=== PATIENT | male | born 1970 ===

== ENCOUNTER 2020-09-16 15:55 | Outpatient (CLI) | payer OTHER | END 2020-09-16 16:29 | disposition home or self-care (01) | LOC: OFIC 805 15:55 | PROVIDERS: ATTEND Otolaryngology Otology & Neurotology | DX: J30.89 Other allergic rhinitis (principal); R09.81 Nasal congestion; R06.7 Sneezing; R09.82 Postnasal drip; R49.0 Dysphonia; H61.21 Impacted cerumen, right ear ==